=== PATIENT | male | born 1990 | race Hispanic/Latino ===

== ENCOUNTER 2016-03-26 12:46 | Emergency (ER) | payer OTHER ==
[~2016-03-26] VITALS: Ht 167.6 cm; Wt 77.1 kg
[~2016-03-26 12:46] MED LIST: AMOXICILLIN500 M3 PO; AMOXICILLIN500 MG PO; AUGMENTIN 875 M1 TAB PO; BLM PO; MEDROL DOSEPAK1 PAC PO; MOTRIN800 MG PO; NASONEX0.05 MG/Ac NAS; NORCO 325 MG-51 TAB PO; PERCOCET 325 MG1 TA2 PO; PERCOCET 5-3251 EACH PO; TESSALON PERLE100 MG PO; TRAMADOL50 MG PO; TYLENOL #31 TAB PO
[2016-03-26 12:50] VITALS: BP 130/80
--- NOTE | 2016-03-26 13:32 | ED INFLUENZA/URI COMPLAINT ---
History of Present Illness General Chief Complaint: Upper Respiratory Sx/Fever Stated Complaint: SORE THROAT/TOWNSEND Source: patient Exam Limitations: no limitations Vital Signs & Intake/Output Vital Signs & Intake/Output Vital Signs Date Time Temp Pulse Resp B/P Pulse O2 O2 Flow FiO2 Ox Delivery Rate 03/26 1401 97 03/26 1250 97.1 110 18 130/80 97 Room Air Allergies Coded Allergies: NO KNOWN ALLERGIES (10/07/14) Reconcile Medications Lidocaine HCl (Lidocaine HCl Viscous) 2 % SOLUTION 15 ML PO 4 TIMES/DAY PRN sore throat Triage Note: COMPLAINS OF HEADACHE AND L SIDE DENTAL PAIN, HAS DENTIST APPOINTMENT TOMORROW. 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 yes Onset: Gradual Duration: day(s): (2) Timing: remote history Severity: moderate Severity Numbers: 6 Prior Episodes/Possible Cause: occassional episodes HPI: Patient is a 25-year-old male presenting to the emergency department with complaint of sore throat, headache finger in the past 2 days. Swallowing makes the pain worse nothing makes it better. Denies taking anything over-the- counter. Denies any chills or fevers. Sore throat sharp in nature. Denies sick contacts or recent travel. He reports he needs a work note for today. No recent travel. No recent antibiotic use. (JORDI FISCHER) Past History Travel History Traveled to [place] past 21 day No Medical History Any Pertinent Medical History? see below for history Neurological: NONE EENT: NONE Cardiovascular: NONE Respiratory: NONE Gastrointestinal: NONE Hepatic: NONE Renal: NONE Musculoskeletal: NONE Psychiatric: NONE Endocrine: NONE Blood Disorders: NONE Cancer(s): NONE ELECTROLOGIST/Reproductive: NONE Tetanus Vaccine: 10/07/14 Surgical History Surgical History: N Psychosocial History What is your primary language Slovenian Tobacco Use: Current Daily Use Daily Tobacco Use Amount/Type: => 5 Cigarettes daily ETOH Use: denies use Illicit Drug Use: denies illicit drug use Family History Hx Contributory? No (JORDI FISCHER) Review of Systems Review of Systems Constitutional: Reports: no symptoms. Comments Review of systems: See HPI, All other systems negative. Constitutional, no chills fever or weight loss HEENT: No visual changes Cardiovascular: No chest pain ,palpitation , orthopnea or ankle swelling Skin, no jaundice no rashes Respiratory: No dyspnea cough sputum GI: No nausea no vomiting Muscle skeletal: no back pain, no neck pain, Neurologic: No numbness no confusion Psych: No stress anxiety Immunology: No splenectomy or history of AIDS (JORDI FISCHER) Physical Exam Physical Exam General Appearance: well developed/nourished, no apparent distress, alert, awake , comfortable Ears, Nose, Throat: nasal congestion, pharyngeal erythema Comments: Well-developed well-nourished person in no acute distress HEENT: Pupils equally round and reactive to light and accommodation. Nose is atraumatic. External auditory canal and Tympanic membranes clear. Pharynx is mildly erythematous, no exudate, no tonsillar enlargement. Clearing secretions without difficulty. Uvula midline. No swelling or edema. Clear nasal discharge bilaterally. Neck: Supple, no lymphadenopathy, normal range of motion without pain or tenderness Back: Nontender, no CVA tenderness. Full range of motion Cardiovascular: Regular rate and rhythms no murmurs rubs or gallops, normal JVP Respiratory: Chest nontender. No respiratory distress.breath sounds clear to auscultation bilaterally Extremity: No edema Neuro: Alert oriented x3 Skin: No appreciable rash on exposed skin, skin is warm and dry. Psych: Mood and affect is normal, memory and judgment is normal. Core Measures Severe Sepsis Present: No Septic Shock Present: No (JORDI FISCHER) Progress Differential Diagnosis: influenza, pharyngitis, sinusitis, strep, viral pharyngitis Plan of Care: Orders Procedure Date/time Status THROAT CULTURE W/QUICK STREP 03/26 1331 Active Initial ED EKG: none Comments: Patient informed of negative rapid strep. Likely viral process. Patient will be cheated symptomatically with lidocaine mouthwash. He will follow up with PCP. Culture sent. (JORDI FISCHER) Departure Departure Time of Disposition: 1408 Disposition: HOME OR SELF CARE Condition: Stable Clinical Impression Primary Impression: Pharyngitis Qualifiers: Pharyngitis/tonsillitis etiology: unspecified etiology Qualified Code: J02.9 - Acute pharyngitis, unspecified Referrals: NILAM LEA MD (PCP/Family) Additional Instructions: Follow-up with your primary care physician call to make appointment. Increase fluids. Take Motrin and Tylenol [id number] for aches or pains. He continues lidocaine mouthwash as prescribed. Departure Forms: Customer Survey General Discharge Information Prescriptions: Current Visit Scripts Lidocaine HCl (Lidocaine HCl Viscous) 15 ML PO 4 TIMES/DAY PRN sore throat #100 ML (JORDI FISCHER) PA/TRIMMER HELPER Co-Sign Statement Statement: ED Attending supervision documentation- [] I saw and evaluated the patient. I have also reviewed all the pertinent lab results and diagnostic results. I agree with the findings and the plan of care as documented in the PA's/TRIMMER HELPER's documentation. [X] I have reviewed the ED Record and agree with the PA's/TRIMMER HELPER's documentation. [] Additions or exceptions (if any) to the PAs/TRIMMER HELPER's note and plan are summarized below: [] (ARMANDO VELÁSQUEZ DO
[2016-03-26] MEDS ORDERED: LIDOCAINE HCL V15 ML PO (14:10)
== END 2016-03-26 14:10 ==
LOC: ERH 12:46
DX: J02.9 Acute pharyngitis, unspecified (principal); Z72.0 Tobacco use